=== PATIENT | female | born 1965 | race Caucasian/White ===

== ENCOUNTER 2018-11-07 08:37 | Emergency (ER) | payer BC ==
[~2018-11-07] VITALS: Ht 147.3 cm; Wt 72.6 kg
[~2018-11-07 08:37] MED LIST: KLO.5; PRIM250T; [UNRECOGNIZED DRUG - OTHER]; [UNRECOGNIZED DRUG - OTHER]
[2018-11-07 08:44] VITALS: BP_SYST 120
== END 2018-11-07 09:15 | disposition home or self-care (01) ==
LOC: SED 08:37
DX: R21 Rash and other nonspecific skin eruption (principal); Z79.899 Other long term (current) drug therapy
CPT/HCPCS: 99282